=== PATIENT | male | born 1990 | race Caucasian/White ===

== ENCOUNTER 2018-07-28 18:28 | Emergency (ER) | payer OTHER, SELFPAY ==
[2018-07-28 18:32] VITALS: BP 162/104; PULSE 105; RESP 14; TEMP 37; O2SAT 99; BMI 34.2
--- NOTE | 2018-07-28 19:48 | EKG12_ITS ---
Test Reason : SYNCOPE Blood Pressure : / mmHG Vent. Rate : 095 BPM Atrial Rate : 095 BPM P-R Int : 158 ms QRS Dur : 088 ms QT Int : 362 ms P-R-T Axes : 031 005 020 degrees QTc Int : 454 ms Normal sinus rhythm with sinus arrhythmia Poor R wave progression Confirmed by YUKI DE LUNA, CELINA ([id number]), editor producer EVIE ESCOBAR ([id number]) on 07/30/2018 3:22:25 PM Referred By: Confirmed By:CELINA MIRZA MD
[2018-07-28 19:57] VITALS: BP 159/107; PULSE 95; RESP 24; O2SAT 97
[2018-07-28 20:01] VITALS: BP 147/96; BP 163/101; BP 164/108; PULSE 108; PULSE 89; PULSE 99
--- NOTE | 2018-07-28 20:02 | ED.RN ---
NO OLD EKGS IN MUSE
--- NOTE | 2018-07-28 20:15 | RAD_ITS ---
STUDY: X-RAY CHEST REASON FOR EXAM: Male, 27 years old. Syncope TECHNIQUE: Frontal and lateral views of the chest COMPARISON: None. FINDINGS: The lungs are clear. There are no pleural effusions. There is no pneumothorax. The heart is normal in size. The visualized osseous structures are within normal limits. RAD/Chest PA and Lateral IMPRESSION: No acute thoracic pathology. Electronically Signed: Elian Zavala, at 20:51 EST Tel , Service support ,
[2018-07-28 20:17] LABS: Bedside Glucose 103 mg/dL (70-110)
--- NOTE | 2018-07-28 21:01 | CT_ITS ---
STUDY: CTA CHEST REASON FOR EXAM: Male, 27 years old. Syncope. Chest pain. RADIATION DOSAGE (If Supplied By Facility): CTDIvol = ( 14.45 ) mGy, DLP = ( 651.12 ) mGycm TECHNIQUE: The examination was performed with the intravenous administration of 100 ml of Isovue 370 contrast material. Post-processing of the angiographic images was performed, with multiplanar reformation and 3D reconstruction. Individualized dose optimization techniques were used for this CT. COMPARISON: None. FINDINGS: The study is limited by patient motion. There are no pulmonary infiltrates or pleural effusions. There are no central or segmental pulmonary emboli. The subsegmental branches are not well evaluated. The heart and pericardium are within normal limits. There is no evidence for thoracic aortic aneurysm. Images through the upper abdomen demonstrate hepatosplenomegaly with fatty infiltration of the liver. There are no destructive osseous lesions. CT/CTA Chest W/WO Contrast IMPRESSION: Study limited by patient motion. No central or segmental pulmonary and was. No pulmonary infiltrates or pleural effusions. Hepatosplenomegaly with fatty infiltration of the liver. Electronically Signed: Elian Zavala, at 21:37 EST Tel , Service support ,
[2018-07-28 21:25] VITALS: BP 160/87; PULSE 116; RESP 12; O2SAT 98
[2018-07-28] MEDS: 0.9% Normal Saline 1,000 ML 1000 ML IV (21:27)
--- NOTE | 2018-07-28 21:32 | ED.RN ---
DR. CAGE MADE AWARE OF PATIENT'S TACHYCARDIA IN THE 120'S IN XRAY WHEN STANDING. PATIENT BELIEVES IT IS D/T HIS ANXIETY. HE TAKES LORAZEPAM PRN. DR. CAGE TO WRITE AN ORDER FOR SOME LORAZEPAM FOR HIM.
[2018-07-28 21:36] LABS: Absolute Lymphocyte Count 1.98 X10^3/ul (0.83-4.51); Absolute Neutrophil Count 5.7 X10^3/uL (2.0-7.7); Basophil# 0.02 X10^3/uL; Basophil% 0.2 % (0-1); Eosinophil# 0.04 X10^3/uL; Eosinophils% 0.5 % (0-5); Hematocrit 38.4 % (40-54); Hemoglobin 13.3 g/dl (13.0-16.5); Lymphocyte # 1.98 X10^3/ul (4.0); Lymphocyte % 23.6 % (19-41); Mean Corp Hgb Conc 34.6 g/gl (32-36); Mean Corpuscular Hgb 30.4 pg (27.0-32.0); Mean Corpuscular Volume 87.9 fL (80-94); Mean Platelet Vol. 9.9 fl (6.2-12.0); Monocyte# 0.64 X10^3/uL; Monocyte% 7.6 % (0-10); Neutrophil # 5.69 X10^3/uL (2.7-7.7); Neutrophil % 67.9 % (47-70); Platelet Count 200 K/mm3 (150-450); RBC Distribution Width CV 12.6 % (11.6-14.6); RBC Distribution Width SD 39.6 fl (35.1-43.9); Red Blood Count 4.37 M/mm3 (4.6-6.2); White Blood Count 8.4 K/mm3 (4.4-11.0)
[2018-07-28 21:37] LABS: POSITIVE COUNT NO; POSITIVE DIFFERENTIAL NO; POSITIVE MORPHOLOGY NO
[2018-07-28] MEDS: LORazepam 2 MG/ML Syringe 1 MG IV (21:48)
[2018-07-28 21:53] LABS: Anion Gap 10 (5-15); BUN 13 mg/dL (7-18); BUN/Creat Ratio 16.4 RATIO (10-20); Calcium,Total 8.8 mg/dL (8.5-10.1); Chloride 103 mmol/L (98-107); Creatinine, Serum 0.79 mg/dL (0.70-1.30); EST Glomerular Filtration Rate 126 mL/min (>60); Est Glom Filt Rate - Afr Amer 152 mL/min (>60); Estimated Creatinine Clearance 152.24 ml/min; Glucose 91 mg/dL (74-106); Potassium 3.7 mmol/L (3.5-5.1); Sodium Level 137 mmol/L (136-145)
--- NOTE | 2018-07-28 22:54 | ED.DCSUM_ITS ---
- ER Visit Summary Date of Service: 07/28/18 Chief Complaint: Near syncope History of Present Illness: The patient is a 27 M who states that he was at dinner tonight when he began to feel short of breath had a feeling that he was going to pass out come over him little bit of chest tightness. This feeling l asted for a couple hours and is now resolved. He has a history of anxiety. No history of PE or familial history of aortic dissection. He sees Dr. Ferraro and sometimes takes Ativan for anxiety. He states he does feel bit nervous about the current situation Physical Examination: Afebrile vital signs show tachycardia 105. 9 9% on room air Gen: Well-nourished well-developed Head: Normocephalic atraumatic Eyes: Perrl EOMI ENT: TMs clear no rhinorrhea moist mucous membranes Neck: Supple no lymphadenopathy no JVD nontender CVS: Regular rate tachycardic rhythm no murmurs normal S1-S2 Respiratory: No distress clear to auscultation bilaterally chest nontender Abdomen: Soft nontender nondistended normal bowel sounds no masses Back: Nontender Extremity: Nontender no edema Skin: Normal color no rash Neuro: alert orientated ?3 CN II-XII intact normal strength sensation reflexes gait cerebellar Psych: Anxious Test Results: EKG shows sinus rhythm at a rate of 95. CBC chemistries troponin were negative. Chest x-ray negative. Patient has had some persistent tachycardia. CT Hilary of the chest was negative for PE and negative for dissection. Emergency Department Course and Treatment: Patient had another episode while getting off of the CT table. He was given Ativan as well as fluids. He is resting comfortably and is asymptomatic current time. Will be discharged home to follow-up with your doctor return if worsening or concerns Impression: 1. Near syncope 2. Dyspnea This note was generated with [employer] dictation software. It may contain incorrect words, spelling, and punctuation that were not noted in review of the chart prior to signing ED Disposition - Plan for ED Patient: Disposition: Home or Assisted Living Chief Complaint: Syncope Instructions: ED Near Syncope Unkn Referrals: Donovan Ferraro DO [Primary Care Provider] - 3-5 Days if not improving
[2018-07-28 22:57] VITALS: BP 158/89; PULSE 96; RESP 22; O2SAT 99
== END 2018-07-28 22:58 | disposition home or self-care (01) ==
PROVIDERS: Emergency Provider Emergency Medicine; Family Provider Family Medicine; PCP Family Medicine
DX: R55 Syncope and collapse (principal); R06.09 Other forms of dyspnea; F41.9 Anxiety disorder, unspecified; Z79.899 Other long term (current) drug therapy
CPT/HCPCS: 71046; 71275; 80048; 82962; 84484; 85025; 93005; 96361; 96374; 99285; J7030; Q9967; A4216